=== PATIENT | female | born 2000 | race African-American/Black ===

== ENCOUNTER 2020-10-25 14:18 | Observation (INO) | payer BC, SELFPAY ==
[2020-10-25 14:46] VITALS: BP 130/71; PULSE 90
[2020-10-25 15:00] VITALS: BP 120/63; PULSE 83
[2020-10-25 15:03] VITALS: BMI 37.5
--- NOTE | 2020-10-25 15:21 | OBADM ---
This patient, Gala Kimbrough, admitted to the OB room OB Post 116 for observation for c/o urinary urgency. Patient/family oriented to hospital policies and general routines including ID bracelet, bed and alarms, visiting hours, pain management, procedures, bathroom and other care routines, personal items, smoking policy, room service/diet, and visiting hours. Patient/Family are encouraged to report perceived risks to care and to ask questions if they do not understand what they are told or what they should do.
[2020-10-25 15:30] VITALS: BP 126/63; PULSE 90
[2020-10-25 15:33] LABS: Add Urine Microscopic? YES; Appearance Urine Cloudy (Clear); Bacteria Urine 1+ /hpf; Bilirubin Urine Negative (Negative); Blood Urine Negative (Negative); Color Urine Yellow (Yellow); Glucose Urine UA Negative (Negative); Ketones Urine 1+ mg/dL (Negative); Leukocyte Esterase Ur Negative LEU/UL (Negative); Mucus Urine Rare /lpf; Nitrate Urine Negative (Negative); Protein Urine Negative (Negative); RBC Urine 0-2 /hpf (0-2); Specific Grav Ur 1.011 (1.001-1.035); Squamous Epithelial Cell Urine Many /hpf (Few); Transitional Epi Cells Urine Rare /hpf (None Seen); Urobilinogen Urine Negative mg/dL (<2.0)
[2020-10-25 16:00] VITALS: BP 117/63; PULSE 91; TEMP 36.3
--- NOTE | 2020-10-29 10:02 | PM.OBTRLD ---
OB - Triage/Final Diagnosis Visit Information Reason for evaluation: threatened labor Comments/Additional reasons for admission: I have assessed the risk for this patient, Gala Kimbrough, and determined that she would benefit from observation care. Evaluation Laboratory results: Laboratory Tests 10/25/20 14:56 Urine Color Yellow Urine Appearance Cloudy H Urine pH 8.0 Ur Specific [place] 1.011 Urine Protein Negative Urine Glucose (UA) Negative Urine Ketones 1+ H Ur Blood (Man) Negative Urine Nitrate Negative Urine Bilirubin Negative Urine Urobilinogen Negative Leukocyte Esterase Rfl Negative Urine RBC 0-2 Urine WBC 4-6 H Ur Squamous Epith Cells Many H Ur Transition Epith Cell Rare Urine Bacteria 1+ H Urine Mucus Rare
== END 2020-10-25 16:46 | disposition home or self-care (01) ==
PROVIDERS: Admitting Provider Obstetrics & Gynecology; PCP Obstetrics & Gynecology; Visit Provider Obstetrics & Gynecology
DX: O47.03 False labor before 37 completed weeks of gestation, third trimester (principal); Z3A.35 35 weeks gestation of pregnancy
CPT/HCPCS: 81001; 87086; G0378; G0379

== ENCOUNTER 2020-11-15 10:12 | Inpatient (IN) | payer BC, SELFPAY ==
[2020-11-15] VITALS (133 sets, daily range): BP systolic 79–150; BP diastolic 28–107; PULSE 25–155; TEMP 36.1–36.6; O2SAT 80–100; BMI 38.2
[2020-11-15] MEDS: LACTATED RINGERS 1,000 ML 125 ML IV CONT (12:21)
[2020-11-15] MEDS: OXYTOCIN 30 UNITS/NS 500 ML 30 UNITS/500 ML BAG IV CONT (12:22)
[2020-11-15 12:38] LABS: Basophils Percent Auto 0.4 % (0.2-1.2); Eosinophils Absolute Auto 0.1 K/mm3 (0-0.3); Eosinophils Percent Auto 0.5 % (0-4.4); Hematocrit 31.5 % (37.0-47.0); Hemoglobin 9.8 g/dL (12.0-15.0); Immature Granulocyte Absolute 0.09 K/mm3 (0.00-0.031); Immature Granulocyte Percent A 0.8 % (0-0.5); Lymphocytes Absolute Auto 1.74 K/mm3 (0.9-3.2); Lymphocytes Percent Auto 15.9 % (18.3-44.2); Mean Corpuscular HGB Conc 31.1 g/dl (32-36); Mean Corpuscular Hemoglobin 24.1 pg (26-34); Mean Corpuscular Volume 77.4 fl (80-100); Mean Platelet Volume 11.1 fl (7.4-10.4); Monocytes Absolute Auto 0.9 K/mm3 (0.1-0.6); Monocytes Percent Auto 7.9 % (2.6-8.5); Neutrophils Absolute Auto 8.2 K/mm3 (1.3-6.7); Neutrophils Percent Auto 74.5 % (45.5-73.1); Platelet Count Result 226 k/mm3 (150-375); Red Blood Count 4.07 M/mm3 (4.2-5.4); Red Cell Distribution Width 16.6 % (11.5-14.5)
--- NOTE | 2020-11-15 13:31 | WPDANESEPP ---
Anes - Eval Pre Procedure Procedure: labor epidural Date/Time: 11/15/20 13:31 Surgeon: Pati Preop Diagnosis: pain during labor Pre Op Diagnosis: Rupture of membranes Patient Data Age: 20 Gender: F Height: 5 ft 3 in Weight: 98 kg Last Vital Signs Temp 36.1 C L 11/15/20 11:45 Pulse 82 11/15/20 13:30 BP 133/63 11/15/20 13:30 Allergies Allergy/AdvReac Type Severity Reaction Status Date / Time No Known Allergies Allergy Verified 11/08/20 13:34 Home Medications Medication Instructions Recorded Confirmed Type PNV cmb#95-ferrous fumarate-FA 1 tablet PO DAILY 10/25/20 10/25/20 History [] Laboratory Tests 11/15/20 11/15/20 11/15/20 12:06 12:06 12:06 WBC 11.0 K/mm3 H K/mm3 (4.5-10.0) RBC 4.07 M/mm3 L M/mm3 (4.2-5.4) Hgb 9.8 g/dL L g/dL (12.0-15.0) Hct 31.5 % L % (37.0-47.0) MCV 77.4 fl L fl (80-100) MCH 24.1 pg L pg (26-34) MCHC 31.1 g/dl L g/dl (32-36) RDW 16.6 % H % (11.5-14.5) Plt Count 226 k/mm3 k/mm3 (150-375) MPV 11.1 fl H fl (7.4-10.4) Immature Gran % (Auto) 0.8 % H % (0-0.5) Neut % (Auto) 74.5 % H % (45.5-73.1) Lymph % (Auto) 15.9 % L % (18.3-44.2) [place] % (Auto) 7.9 % % (2.6-8.5) Eos % (Auto) 0.5 % % (0-4.4) Baso % (Auto) 0.4 % % (0.2-1.2) Lymph # (Auto) 1.74 K/mm3 K/mm3 (0.9-3.2) [place] # (Auto) 0.9 K/mm3 H K/mm3 (0.1-0.6) Eos # (Auto) 0.1 K/mm3 K/mm3 (0-0.3) Baso # (Auto) 0.0 K/mm3 K/mm3 (0.0-0.1) Abs Immat Gran (auto) 0.09 K/mm3 H K/mm3 (0.00-0.031) Absolute Neuts (auto) 8.2 K/mm3 H K/mm3 (1.3-6.7) Absolute Nucleated RBC 0.0 K/mm3 K/mm3 (0.0-0.012) Nucleated RBC % 0.0 % % (0.0-0.2) RPR Pending Blood Type O Positive Antibody Screen Negative : gestational age (REGULO 11/26/20) Patient hx anesthesia problems: none Family hx anesthesia problems: none PMFSH Family History Family History Other Unknown family medical history Social History Social History Smoking status: Never smoker Second hand tobacco smoke exposure: No Additional smoking assessment comments: pt admits to occasional marijuana use Substance use: never Spiritual care concerns: No Exam Day of Procedure 11/15/20 13:31 Patient weight: obese Heart: regular rate and rhythm Neurological: alert and oriented
--- NOTE | 2020-11-15 23:25 | WPDHPUPDATE1 ---
History and Physical Update Update Date/Time: 11/15/20 23:25 History and Physical has been reviewed, including an updated exam of the patient. There are NO changes in the patient's condition. Risks, benefits, and alternatives have been discussed and questions answered. Patient agrees to proceed with procedure.
--- NOTE | 2020-11-15 23:25 | WPDOBADMIT ---
Obstetrics - Admit Note Admission Note: record reviewed. No pertinent additions to the history and/or any subsequent changes in the physical findings that are not consistent with the expected course of the were found. Additions to the history and/or subsequent changes in the physical findings follow. None.
--- NOTE | 2020-11-15 23:47 | P.PCNOB_ITS ---
OB - Delivery Note Procedure Route of delivery: Episiotomy description: None Laceration Description: Superficial Delivery repair: chromic Specimen: Yes Quantitative Blood Loss (ml): 200 Anesthesia type: Epidural Disposition: floor Narrative: Patient prepped and draped in usual manner for this procedure. Maternal expulsive efforts readily delivered vertex with nuchal cord noted and readily reduced. Rest of baby was delivered without difficulty cord was clamped and cut and placenta delivered spontaneously. Cervix vagina vulva were inspected no significant lacerations or tears. Small laceration periurethral was using which was rendered hemostatic using [id number] of 2 0 chromic suture. Uterus was well contracted no significant bleeding at this point procedure was considered terminated with immediate postoperative condition of mother and baby both excellent. [place] Baby Weeks of gestation at delivery: 38 Infant gender: Male Weight (pounds): 0 Weight (ounces): 0 score one minute: 9 score five minutes: 9
[2020-11-16] VITALS (15 sets, daily range): BP systolic 108–148; BP diastolic 60–114; PULSE 81–107; RESP 16–18; TEMP 36.9–37.2; O2SAT 100
[2020-11-16] MEDS: OXYTOCIN 30 UNITS/NS 500 ML 30 UNITS/500 ML BAG 125 UNITS IV CONT (00:11)
--- NOTE | 2020-11-16 03:00 | OBPPTRN ---
Patient transferred to post room #278 via wheelchair - still down in nursery for first bath. Support person present. Oriented to unit, room, information board, rooming in, admission packet and security measures. Patient verbalizes understanding.
--- NOTE | 2020-11-16 08:00 | PC.NURSE ---
0800 Mother called out for assist with feeding. Mother reports has been sleepy and using a nipple shield for all feedings. Mother states this is 2nd child she did not attempt to breastfeed first. Reviewed infant feeding cues, frequencies, duration of feedings, feeding elimination flow sheet, and signs of adequate intake. Demonstrated stimulation techniques to wake for feeding. Assisted with infant to breast. Reviewed positioning/alignment in cross cradle, holding breast in ?U? hold and guided asymmetrical latch on. made eager attempts and was unable to latch correctly. Discussed nipple shield precautions and possible complications. Reviewed application and cleaning of shield. Patient able to return demonstration on proper application of shield. Discussed the need to initiate pumping if infant continues to nurse with the shield. Patient verbalizes understanding. With shield in place, was able to latch deeply. Infant made minimal efforts to suckle. Suggested mother stimulate while feeding to increase stimulate, increase intake and to assist with maintaining deep latch. Infant has a few bursts of weak suckling over 15 minutes of attempt. Discussed feeding options Mother would like to supplement . Advised mother should initiate pumping to stimulate milk supply. Advised next feeding should be at 1100 Instructed mother to call out for RN assistance if she is unable to latch for feeding or she has discomfort with nursing. Instructed feeding should be initiated three hours from start of last feeding or if feeding cues are noted before. Mother voiced understanding of information shared
--- NOTE | 2020-11-16 08:16 | PM.OBDSVD ---
DS: Admitting Diagnosis Admitting Diagnosis Admitting Diagnosis: OB - DS: Summary OB Procedures : None OB Procedures Intrapartum: Spontaneous Vag Delivery OB Procedures: : None Time Spent with Patient Time attestation: Total time spent providing and/or coordinating discharge services: DS: Data Data Completed and Pending Labs on day of discharge: Labs from last 24 hours 11/15/20 11/15/20 11/15/20 12:06 12:06 12:06 WBC 11.0 H RBC 4.07 L Hgb 9.8 L Hct 31.5 L MCV 77.4 L MCH 24.1 L MCHC 31.1 L RDW 16.6 H Plt Count 226 MPV 11.1 H Immature Gran % (Auto) 0.8 H Neut % (Auto) 74.5 H Lymph % (Auto) 15.9 L [place] % (Auto) 7.9 Eos % (Auto) 0.5 Baso % (Auto) 0.4 Lymph # (Auto) 1.74 [place] # (Auto) 0.9 H Eos # (Auto) 0.1 Baso # (Auto) 0.0 Abs Immat Gran (auto) 0.09 H Absolute Neuts (auto) 8.2 H Absolute Nucleated RBC 0.0 Nucleated RBC % 0.0 RPR Pending Blood Type O Positive Antibody Screen Negative Discharge Plan Discharge Discharging Clinician: Lenny Krueger Anticipated Discharge Date/Time: 11/17/20 08:00 Patient Disposition: Home, Self-Care Activity: as tolerated Diet: as tolerated Patient Instructions: Antibiotic Form Stand Alone Forms: General Discharge Information Follow-up/Referrals: Lenny Krueger MD [Physician] - 3 Weeks Discharge Medications: New ibuprofen 600 mg Tablet 600 mg PO Q6H PRN (Reason: Cramping) Qty: 30 RF: 0 Continued PNV cmb#95-ferrous fumarate-FA [] 28 mg iron- 800 mcg Tablet 1 tablet PO DAILY RF: 0 Date of admission: 11/15/20 10:12 Primary Care Provider: PHYSICIAN,PRODUCT MANAGEMENT MANAGER Admitting Provider: Lenny Krueger Attending physician on admission: Lenny Krueger Condition: Stable
[2020-11-16 08:56] LABS: Rapid Plasma Reagin Non-Reactive (NonReactive)
[2020-11-16 09:26] LABS: Hematocrit 30.4 % (37.0-47.0); Hemoglobin 9.4 g/dL (12.0-15.0)
--- NOTE | 2020-11-16 09:42 | WPDANLDPN2 ---
Anes-Prog Note L&D Date/Time: 11/16/20 09:42 Comfortable throughout: labor and delivery Neuraxial method: epidural Epidural/Spinal procedure site: clean & non-tender Neuro status: Neuro function grossly intact. Cardiovascular status: normal Respiratory status: normal Airway patency: baseline Mental status: baseline Post-Op hydration status: normal Vital Signs: Last Vital Signs Temp 37.1 C 11/16/20 08:05 Pulse 89 11/16/20 08:05 Resp 16 11/16/20 08:05 BP 117/71 11/16/20 08:05 Pulse Ox 100 11/16/20 08:05 Pain score (VAS): 07/03 I/O: Intake & Output 11/15/20 11/16/20 11/16/20 23:59 07:59 15:59 Intake Total 500 Output Total 200 Balance 300 Post-procedural complaints: none Patient feedback: Patient satisfied with anesthetic care.
--- NOTE | 2020-11-16 11:25 | PCCCNOTE ---
Addendum entered by Julissa Newman, [facility] [place]16[place] 12:43[place] 1245: Received email from [facility] stating the report was reviewed and assessed by a Civil Engineer In Training and was also approved by a monomer recovery supervisor. The information provided did not meet one of the criteria for an investigation. The information has been documented and will be kept on file. Should any more information be discovered or have any additional concerns, please contact [facility] again. KARIME Concepcion aware. Addendum entered by Julissa Newman, [facility] [place]/16/20 11:31: Pt. was not tested for any substances. Baby's meconium is pending. Original Note: Care Coordination: Received referral that states pt's baby boy's urine drug screen tested positive for THC. Met with pt. Pt. reports she will be living with the , 1 year old daughter, and significant other Kip in [place]. Pt. reports she has support from both Kip and her family. Pt. reports having all necessary baby supplies and only lacking some clothing. resources were provided for second hand resale shops. Pt. reports she has been in the process of setting up WIC and has successfully been set up with [employer]. Pt. reports using THC during for morning sickness and nausea. Pt. states a report was made with DCFS and DCFS came to her house. Gala reports that she is understanding that the report with her baby girl has been closed and not involved in any care plan with DCFS. Per Nursing, pt. will likely discharge tomorrow. DCFS report was filed online - #[id number]. KARIME Concepcion aware of this information.
[2020-11-16] MEDS: POLYSACCHARIDE IRON COMPLEX 150 MG CAPSULE PO ×2 (11:35→16:59)
[2020-11-16] MEDS: DOCUSATE SODIUM 100 MG CAPSULE PO ×2 (11:35→16:59)
[2020-11-16] MEDS: MULTIVIT/MIN/PREN/FOL AC/IRON TABLET 1 TAB PO (11:35)
[2020-11-16] MEDS: IBUPROFEN 600 MG TABLET PO (13:31)
--- NOTE | 2020-11-16 14:21 | PC.NURSE ---
Mother called out she is ready to begin pumping. Breast pump provided due to ineffective feeding/nipple shield use. Instructions given on breast pump care and usage, pumping schedule, nipple care, and collection and storage of breast milk. Encouraged [id number], breast massage and manual expression to stimulate supply. Assessed patient for correct flange size, placement and draw. Patient verbalizes and demonstrates understanding of instructions.
[2020-11-17] MEDS: IBUPROFEN 600 MG TABLET PO ×2 (04:15→11:18)
[2020-11-17 07:40] VITALS: BP 134/68; PULSE 83; RESP 16; TEMP 36.9; O2SAT 100
--- NOTE | 2020-11-17 08:10 | PC.NURSE ---
Consult with pt., mother reports she bottle fed during the night and did not pump. Mother states she wishes to continue with . Reviewed stimulation and milk supply. Mother would like to attempt to breast. Reviewed positioning/alignment in cross cradle, holding breast in U hold and guided asymmetrical latch on. Mother has large nipples , discussed infant may take in part of nipple and watching for correct latch. was wake and rooting, suggested to attempt without nipple shield. Several attempts before was able to latch correctly. Infant nursed eagerly, with steady draws and occasional swallowing for good 1-2 minutes bursts then pause and nipple would slip out. Infant eager to reattempt latch. Reviewed signs of a correct latch, effective nursing and suck swallow ratio. Infant was able to nurse without discomfort to mother. Nipple care reviewed. Discussed the difference of effective vs ineffective nursing. Advised infant is having a few bursts of effective nursing, not enough to discontinue supplementation and pumping. Feeding Plan: will be to continue to put to breast each feeding allowing to nurse or attempt without discomfort to mother. Suggested to return to nipple shield if she is having discomfort with nursing. Mother will then supplement 20 mls EBM/formula each feeding and pump for 10-15 minutes. Discussed signs when may be ready to increase supplementation, suggested to increase as desires. Reviewed once infant is latching consistently and effectively nursing he may want to decrease supplementation, suggested mother have feeding observed or pre and post weight feeding done by [facility], or follow up nurse before decreasing or discontinuing supplementation. Mother has contacted [facility] for pump, assisted mother with hospital kit as a hand pump. Mother is feeding as required and waking infant to feed if needed. Infant is currently meeting outcomes for weight, output, jaundice and feeding frequencies. Mother states she feels confident to continue current feeding plan at home. Reviewed transition to breast milk, signs of adequate intake, and engorgement/relief. Instructed to call ICP if intake/output less than required. Reviewed regular medications mother is taking. Information provided per Doreen. Reviewed community resources on the [employer] website and in the Mom/Baby guide. Information on outpatient services provided. Mother has no further questions at this time.
[2020-11-17] MEDS: MULTIVIT/MIN/PREN/FOL AC/IRON TABLET 1 TAB PO (09:39)
[2020-11-17] MEDS: DOCUSATE SODIUM 100 MG CAPSULE PO (09:39)
[2020-11-17] MEDS: POLYSACCHARIDE IRON COMPLEX 150 MG CAPSULE PO (09:40)
[2020-11-17] MEDS: LANOLIN (LANSINOH) 7.5 GM CREAM 1 APPLIC TOPICAL (09:41)
[2020-11-17] MEDS: TETANUS,DIPHTHERIA,AC PERTUSSIS ADULT (0.5 ML) BOOSTRIX IM (11:20)
--- NOTE | 2020-11-19 09:22 | PM.OBDSVD ---
DS: Admitting Diagnosis Admitting Diagnosis Admitting Diagnosis: OB - DS: Summary OB Procedures : None OB Procedures Intrapartum: Spontaneous Vag Delivery OB Procedures: : None Time Spent with Patient Time attestation: Total time spent providing and/or coordinating discharge services: DS: Data Data Completed and Pending Pending studies at discharge: Pending at discharge 11/17/20 07:34 Surgical [PTH] Routine Discharge Plan Discharge Discharging Clinician: Lenny Krueger Anticipated Discharge Date/Time: 11/17/20 08:00 Patient Disposition: Home, Self-Care Activity: as tolerated Diet: as tolerated Discharge Instructions: Education: Mom and Baby Guide Given to: Mother Follow-Up: Call your delivering provider's office for an appointment to be seen in: 3 weeks Mom and baby should come to the [facility] for the follow-up appointment. Appointment Date/Time: November 18, 2020 at 8:00 am What to expect at your follow-up visit: Blood Pressure Check Physical Assessment Call [phone] if you are unable to keep your appointment time. BREAST CARE: * Wear a snug supportive bra. * For engorgement discomfort: Breast Feeding: * Apply warm moist washcloths * Express milk as needed to relieve engorgement * Wear loose clothing Bottle Feeding: * May apply ice packs * For sore nipples: * Identify correct latch-on * Apply warm moist washcloths before and after nursing * Air dry nipples after nursing * May apply Lansinoh cream to nipples EPISIOTOMY/PERINEAL CARE: * Until bleeding stops, use your jass bottle after urinating * Change your pad frequently throughout the day * You may take sitz baths several times a day (fill your bathtub with warm water and soak for 20 minutes.) Do NOT bathe in the water * No tub baths until seen by your physician - You may shower ACTIVITY: * Rest as much as possible. * Do not exercise or lift anything heavier than your baby (such as laundry or other children.) * Avoid stairs or driving as much as possible. * Do not put anything into the vagina. No douching, tampons, or sexual activity until seen by physician. NOTIFY PHYSICIAN IF YOU HAVE ANY QUESTIONS OR IF ANY OF THE FOLLOWING SYMPTOMS OCCUR: * If your perineum becomes red, swollen, or more painful than what you have experienced in the hospital. * If your vaginal bleeding becomes foul smelling. * If your vaginal bleeding becomes more heavy than a period or if your bleeding changes from pink to bright red. However, you may pass an occasional walnut-sized clot once or twice for the first week . * If you experience a sharp, shooting pain in you calves. * If you discover a hard, reddened area on your breast or if you experience flu-like symptoms. *Temperature of 100.4 or higher DIET: * Eat regular, well-balanced meals. * Drink plenty of fluids daily. If , drink to thirst. Stand Alone Forms: General Discharge Information Follow-up/Referrals: Lenny Krueger MD [Physician] - 3 Weeks Discharge Medications: New ibuprofen 600 mg Tablet 600 mg PO Q6H PRN (Reason: Cramping) Qty: 30 RF: 0 Continued PNV cmb#95-ferrous fumarate-FA [] 28 mg iron- 800 mcg Tablet 1 tablet PO DAILY RF: 0 Date of admission: 11/15/20 10:12 Primary Care Provider: PHYSICIAN,CHANGE HOUSE ATTENDANT Admitting Provider: Lenny Krueger Attending physician on admission: Lenny Krueger Condition: Stable
== END 2020-11-17 15:06 | disposition home or self-care (01) | DRG 560 ==
LOC: ANHLDR 11:07 → ANHOB2 11-16 02:34
PROVIDERS: Admitting Provider Obstetrics & Gynecology; Visit Provider Obstetrics & Gynecology
DX: O16.4 Unspecified maternal hypertension, complicating childbirth (principal); Z37.0 Single live birth; Z3A.38 38 weeks gestation of pregnancy; O69.81X0 Labor and delivery complicated by cord around neck, without compression, not applicable or unspecified; O70.0 First degree perineal laceration during delivery; O71.82 Other specified trauma to perineum and vulva; O99.324 Drug use complicating childbirth; F12.90 Cannabis use, unspecified, uncomplicated
CPT/HCPCS: 36415; 84112; 85014; 85018; 85025; 86592; 86850; 86900; 86901; 88307; 90715; A9270; J2590; J2795; J7120

== ENCOUNTER 2021-09-22 08:37 | Outpatient (CLI) | payer BC, SELFPAY ==
[2021-09-22 09:07] VITALS: BP 99/57; PULSE 92
[2021-09-22 09:16] VITALS: BP 84/56; PULSE 74
[2021-09-22 09:29] VITALS: BP 134/76; PULSE 91
[2021-09-22 09:30] VITALS: BP 143/83; PULSE 94
[2021-09-22 09:45] VITALS: BP 135/79; PULSE 98
[2021-09-22 09:49] VITALS: BP 135/79; PULSE 89
--- NOTE | 2021-09-22 09:55 | PM.OBTRLD ---
OB - Triage/Final Diagnosis Visit Information Reason for evaluation: threatened labor Comments/Additional reasons for admission: I have assessed the risk for this patient, Gala Kimbrough, and determined that she would benefit from observation care. Evaluation Vital signs: Vital Signs - 24 hr 09/22/21 09:07 09/22/21 09:16 09/22/21 09:29 Pulse Rate 92 74 91 Blood Pressure 99/57 L 84/56 L 134/76 09/22/21 09:30 09/22/21 09:45 Pulse Rate 94 98 Blood Pressure 143/83 H 135/79
== END 2021-09-22 09:50 | disposition home or self-care (01) ==
LOC: ANHOBOP 09:42 → ANHLDR 09:42
PROVIDERS: Visit Provider Obstetrics & Gynecology
DX: O42.90 Premature rupture of membranes, unspecified as to length of time between rupture and onset of labor, unspecified weeks of gestation (principal); Z3A.00 Weeks of gestation of pregnancy not specified
CPT/HCPCS: 59025; 84112; 99199

== ENCOUNTER 2021-09-25 09:36 | Inpatient (IN) | payer BC, SELFPAY ==
[2021-09-25] VITALS (53 sets, daily range): BP systolic 87–148; BP diastolic 53–111; PULSE 67–128; RESP 13–18; TEMP 36.3–37.1; O2SAT 89–100; BMI 38.2
--- NOTE | 2021-09-25 10:28 | LDADM ---
This patient, Gala Kimbrough, was admitted to Labor/Delivery/Recovery 106 on 09/25/21 at 09:36. Plans for labor, pain management and were discussed with patient. Patient/family oriented to hospital policies and general routines including ID bracelet, bed and alarms, visiting hours, pain management, procedures, bathroom and other care routines, personal items, smoking policy, room service/diet and guest tray routines, security routines, and visiting hours. Patient/Family are encouraged to report perceived risks to care and to ask questions if they do not understand what they are told or what they should do. See [facility] for further documentation.
[2021-09-25] MEDS: LACTATED RINGERS 1,000 ML 999 ML IV CONT (10:48)
[2021-09-25 11:01] LABS: Basophils Absolute Auto 0.1 K/mm3 (0.0-0.1); Basophils Percent Auto 0.5 % (0.2-1.2); Eosinophils Absolute Auto 0.1 K/mm3 (0-0.3); Hematocrit 33.6 % (37.0-47.0); Hemoglobin 10.5 g/dL (12.0-15.0); Immature Granulocyte Absolute 0.07 K/mm3 (0.00-0.031); Immature Granulocyte Percent A 0.6 % (0-0.5); Lymphocytes Absolute Auto 1.81 K/mm3 (0.9-3.2); Lymphocytes Percent Auto 16.4 % (18.3-44.2); Mean Corpuscular HGB Conc 31.3 g/dl (32-36); Mean Corpuscular Hemoglobin 25.2 pg (26-34); Mean Corpuscular Volume 80.6 fl (80-100); Mean Platelet Volume 11.6 fl (7.4-10.4); Monocytes Absolute Auto 0.8 K/mm3 (0.1-0.6); Monocytes Percent Auto 7.1 % (2.6-8.5); Neutrophils Absolute Auto 8.2 K/mm3 (1.3-6.7); Neutrophils Percent Auto 74.4 % (45.5-73.1); Platelet Count Result 197 k/mm3 (150-375); Red Blood Count 4.17 M/mm3 (4.2-5.4); Red Cell Distribution Width 18.3 % (11.5-14.5); White Blood Count 11.1 K/mm3 (4.5-10.0)
--- NOTE | 2021-09-25 11:10 | WPDANESEPPF ---
Anes - Initial Pre Proc Eval Procedure: labor epidural Date/Time: 09/25/21 11:10 Surgeon: Lenny Krueger MD Pre Op Diagnosis: labor pain Pre Op Diagnosis: Contractions Patient Data Age: 21 Gender: F Height: 1.6 m Weight: 98 kg Allergies Allergy/AdvReac Type Severity Reaction Status Date / Time No Known Allergies Allergy Verified 09/18/21 11:09 Home Medications Medication Instructions Recorded Confirmed Type PNV cmb#95-ferrous fumarate-FA 1 tablet PO DAILY 10/25/20 09/25/21 History [] Laboratory Tests 09/25/21 09/25/21 09/25/21 10:38 10:38 10:38 WBC Pending RBC Pending Hgb Pending Hct Pending MCV Pending MCH Pending MCHC Pending RDW Pending Plt Count Pending MPV Pending Immature Gran % (Auto) Pending Neut % (Auto) Pending Lymph % (Auto) Pending [place] % (Auto) Pending Eos % (Auto) Pending Baso % (Auto) Pending Lymph # (Auto) Pending [place] # (Auto) Pending Eos # (Auto) Pending Baso # (Auto) Pending Abs Immat Gran (auto) Pending Absolute Neuts (auto) Pending Absolute Nucleated RBC Pending Nucleated RBC % Pending Urine Opiates Screen Urine Methadone Screen Ur Barbiturates Screen Ur Phencyclidine Scrn Ur Amphetamine Screen U Benzodiazepines Scrn Urine Cocaine Screen U Cannabinoids Screen RPR Pending HIV 1&2 Ab/P24 Ag 4thGn Pending 09/25/21 10:38 WBC RBC Hgb Hct MCV MCH MCHC RDW Plt Count MPV Immature Gran % (Auto) Neut % (Auto) Lymph % (Auto) [place] % (Auto) Eos % (Auto) Baso % (Auto) Lymph # (Auto) [place] # (Auto) Eos # (Auto) Baso # (Auto) Abs Immat Gran (auto) Absolute Neuts (auto) Absolute Nucleated RBC Nucleated RBC % Urine Opiates Screen Pending Urine Methadone Screen Pending Ur Barbiturates Screen Pending Ur Phencyclidine Scrn Pending Ur Amphetamine Screen Pending U Benzodiazepines Scrn Pending Urine Cocaine Screen Pending U Cannabinoids Screen Pending RPR HIV 1&2 Ab/P24 Ag 4thGn Patient hx anesthesia problems: none Family hx anesthesia problems: none Results Review: All pre-operative results and documents have been reviewed as part of the pre-operative evaluation. [facility] Past Medical History Medical History (Updated 09/13/21 @ 13:37 by Alycia Garcia MA) Hypertension affecting UTI (urinary tract infection) Surgical History Surgical History (Updated 08/01/21 @ 09:53 by Janette Nava) H/O wrist surgery History of laparoscopy 05/02/20 dx lscope to r/o torsion Family History Family History Other Unknown family medical history Social History Social History (Updated 06/30/21 @ 13:37 by Alycia Garcia MA) Smoking status: Smoker, status unknown Second hand tobacco smoke exposure: No Additional smoking assessment comments: pt admits to occasional marijuana use Alcohol intake: never Substance use: current Gender identity (if verbalized by the patient): Female Sexual Orientation (if Verbalized by the Patient): Straight or Heterosexual Spiritual care concerns: No Anes - Eval Final PreProcedure Day of Procedure 09/25/21 11:10 Patient weight: obese Heart: regular rate and rhythm Lungs: clear to auscultation and normal air movement Airway: Mallampati scale class II Neurological: alert and oriented Last oral intake: >/= 8 hours ASA classification: I
[2021-09-25] MEDS: LACTATED RINGERS 1,000 ML 125 ML IV CONT (11:11)
[2021-09-25 11:29] LABS: Amphetamine Screen Urine Negative (Negative); Barbiturate Screen Urine Negative (Negative); Benzodiazepines Screen Urine Negative (Negative); Cannabinoid Screen Urine Positive (Negative); Cocaine Screen Urine Negative (Negative); Methadone Screen Urine Negative (Negative); Opiate Screen Urine Negative (Negative); Phencyclidine Screen Urine Negative (Negative)
[2021-09-25 11:38] LABS: HIV 1/2 Ab P24 Ag Result Negative (Negative)
[2021-09-25] MEDS: OXYTOCIN 30 UNITS/NS 500 ML 30 UNITS/500 ML BAG 125 UNITS IV CONT ×2 (12:02→15:03)
--- NOTE | 2021-09-25 12:17 | WPDANESEFPP ---
Anes - Eval Final PreProcedure Day of Procedure 09/25/21 12:17 Patient weight: obese Heart: regular rate and rhythm Lungs: clear to auscultation Airway: Mallampati scale class II Neurological: alert and oriented Last oral intake: >/= 8 hours ASA classification: III Emergent: no Anesthetic plan: proceed Anesthesia type and monitoring: regional epidural (existing for labor but will use for C/S due to breech presentation) and standard monitoring Results Review: All pre-operative results and documents have been reviewed as part of the pre-operative evaluation. Informed Consent: The patient's anesthetic plan of existing epidural for Cesarian section due to breech with Dr. Krueger and its attendant risks and benefits were discussed with the patient. Questions were solicited and answers provided to the satisfaction of the patient/family/POA.
--- NOTE | 2021-09-25 12:18 | PM.IMHP ---
H&P: HPI History of Present Illness Date/Time: 09/25/21 12:18 Female 3 para 2001 presents in labor found to be 45cm on admission. After epidural and during exam for planned rupture of membranes was noted be breech which was confirmed by ultrasound. Discussed with patient and will proceed with delivery. Chief Complaint: Review of Systems Review of Systems: All systems reviewed & are unremarkable except as noted in HPI and below PMFSH Past Medical History Medical History Hypertension affecting UTI (urinary tract infection) Surgical History Surgical History H/O wrist surgery History of laparoscopy 05/02/20 dx lscope to r/o torsion Family History Family History Other Unknown family medical history Social History Social History Smoking status: Smoker, status unknown Second hand tobacco smoke exposure: No Additional smoking assessment comments: pt admits to occasional marijuana use Alcohol intake: never Substance use: current Gender identity (if verbalized by the patient): Female Sexual Orientation (if Verbalized by the Patient): Straight or Heterosexual Spiritual care concerns: No Meds Home Medications and Allergies Home Medications Medication Instructions Recorded Confirmed Type PNV cmb#95-ferrous fumarate-FA 1 tablet PO DAILY 10/25/20 09/25/21 History [] Allergies Allergy/AdvReac Type Severity Reaction Status Date / Time No Known Allergies Allergy Verified 09/18/21 11:09 Vital Signs Vital Signs - 24 hr 09/25/21 11:00 09/25/21 11:14 09/25/21 11:16 Temperature 98.8 F Pulse Rate 83 93 Blood Pressure 128/67 148/79 H Pulse Oximetry 100 09/25/21 11:20 09/25/21 11:30 09/25/21 11:33 Temperature Pulse Rate 106 H 83 Blood Pressure 130/73 104/82 Pulse Oximetry 100 100 09/25/21 11:35 09/25/21 11:37 09/25/21 11:40 Temperature Pulse Rate 75 Blood Pressure 132/62 Pulse Oximetry 100 100 09/25/21 11:41 09/25/21 11:45 09/25/21 11:46 Temperature Pulse Rate 73 76 Blood Pressure 142/88 H 135/80 Pulse Oximetry 99 09/25/21 11:50 09/25/21 11:51 09/25/21 11:55 Temperature Pulse Rate 76 Blood Pressure 131/78 Pulse Oximetry 99 98 09/25/21 11:56 09/25/21 12:00 09/25/21 12:01 Temperature Pulse Rate 83 86 Blood Pressure 144/82 H 137/77 Pulse Oximetry 100 09/25/21 12:05 09/25/21 12:08 09/25/21 12:09 Temperature Pulse Rate Blood Pressure Pulse Oximetry 99 100 99 09/25/21 12:11 09/25/21 12:14 09/25/21 12:16 Temperature Pulse Rate 81 87 Blood Pressure 144/86 H 138/74 Pulse Oximetry 100 Exam Const: General: cooperative, healthy appearing and comfortable Resp: Effort & Inspection: normal respiratory effort Auscultation: clear to auscultation bilaterally Cardio: Rate: regular rate Rhythm: regular rhythm GI: Auscultation: normal bowel sounds : External Female Exam: normal external appearance Speculum Exam - Vagina: normal appearance of the vagina Bimanual exam- vagina & uterus: enlarged ( 39cm. heart tones 140. Breech by ultrasound.) Manual OB Exam: dilated 7 cm, effaced 75% and station -2 H&P: Results Labs Labs: Short CBC 09/25/21 Range/Units 10:38 WBC 11.1 H (4.5-10.0) K/mm3 Hgb 10.5 L (12.0-15.0) g/dL Hct 33.6 L (37.0-47.0) % Plt Count 197 (150-375) k/mm3 Assessment and Plan Assessment and plan (1) 39 weeks gestation of : Code(s): Z3A.39 - 39 weeks gestation of Status: Acute (2) Breech presentation: Code(s): O32.1XX0 - Maternal care for breech presentation, not applicable or unspecified Status: Acute Assessment a
--- NOTE | 2021-09-25 12:21 | WPDHPUPDATE1 ---
History and Physical Update Update Date/Time: 09/25/21 12:21 History and Physical has been reviewed, including an updated exam of the patient. There are NO changes in the patient's condition. Risks, benefits, and alternatives have been discussed and questions answered. Patient agrees to proceed with procedure.
--- NOTE | 2021-09-25 13:25 | PM.OBPRVD ---
OB - Delivery Note Procedure Procedure: Procedures Operation Date: 09/25/21 12:15 <No data on this case meets the specified criteria> Events: Breech Presentation Induction method: None Delivery monitor: External FHT and External Uterine Route of delivery: Prior to decision for section, [facility] labor guidelines were considered and discussed with the patient and staff. Decision made to proceed with the section.: No Specimen: No Quantitative Blood Loss (ml): 525 Anesthesia type: Epidural Disposition: Floor Narrative: Patient was prepped and draped in the usual manner for this procedure. Pfannenstiel incision was made carried down to the fascia which was extended bilaterally the length of the skin incision. Superiorly and inferiorly dissected away from the rectus muscles and the peritoneum was readily entered. Bladder flap was developed without difficulty nares was scored with clear fluid noted. Lower segment was incised without difficulty. Breech was delivered readily section naso-oropharynx cord was clamped and cut the baby was passed off the operative field. Placenta removed manually with the uterus then being a removed through the abdominal incision. All membranes and clots removed from the uterus and this incision was closed using 0 Monocryl running interlocking manner with good approximation hemostasis noted. Uterus of was then returned to the abdomen gutters were cleared of serous sanguinous fluid and clots and all subfascial tissue was noted be hemostatic. Fascia was approximated using 0 Vicryl from left angle midline and the right angle to the midline. Subcutaneous tissue was irrigated and was hemostatic and approximated using 0 plain suture. Dana were then used to approximate the skin edges. Immediate postoperative condition of mother and baby were both excellent. Baby Weeks of gestation at delivery: 39 Infant gender: Female Weight (pounds): 5 Weight (ounces): 12 presentation: breech Placenta delivery description: Manual Removal Cord Vessel Description: 3 Vessels score one minute: 8 score five minutes: 9 AMG Delivery Billing Delivery Delivery: Delivery Charge
[2021-09-25] MEDS: KETOROLAC 30 MG/ML VIAL (*BKC) 15 MG IV PUSH (14:26)
--- NOTE | 2021-09-25 16:06 | PC.NURSE ---
Patient transferred to post room #287 via 1606. Support person present. Oriented to unit, room, information board, rooming in, admission packet and security measures. Patient verbalizes understanding.
[2021-09-25] MEDS: KETOROLAC 30 MG/ML VIAL (*BKC) IV PUSH (17:51)
[2021-09-25] MEDS: LORATADINE 5 MG TABLET PO (19:29)
[2021-09-26] MEDS: IBUPROFEN 600 MG TABLET PO ×3 (01:32→16:28)
[2021-09-26] MEDS: HYDROcodone/acetaminophen (*CRX) 5-325 MG TABLET 1 TAB PO ×4 (01:32→16:28)
[2021-09-26 05:20] VITALS: BP 104/60; PULSE 74; RESP 16; TEMP 36.6
[2021-09-26 05:38] LABS: Basophils Percent Auto 0.2 % (0.2-1.2); Eosinophils Percent Auto 0.1 % (0-4.4); Hematocrit 28.2 % (37.0-47.0); Hemoglobin 9.1 g/dL (12.0-15.0); Immature Granulocyte Absolute 0.04 K/mm3 (0.00-0.031); Immature Granulocyte Percent A 0.3 % (0-0.5); Lymphocytes Absolute Auto 1.55 K/mm3 (0.9-3.2); Lymphocytes Percent Auto 12.4 % (18.3-44.2); Mean Corpuscular HGB Conc 32.3 g/dl (32-36); Mean Corpuscular Hemoglobin 25.3 pg (26-34); Mean Corpuscular Volume 78.6 fl (80-100); Monocytes Percent Auto 8.3 % (2.6-8.5); Neutrophils Absolute Auto 9.8 K/mm3 (1.3-6.7); Neutrophils Percent Auto 78.7 % (45.5-73.1); Platelet Count Result 171 k/mm3 (150-375); Red Blood Count 3.59 M/mm3 (4.2-5.4); White Blood Count 12.5 K/mm3 (4.5-10.0)
[2021-09-26 08:00] VITALS: BP 100/66; PULSE 92; RESP 20; TEMP 36.2
[2021-09-26] MEDS: SIMETHICONE 80 MG TAB.CHEW PO ×3 (08:08→16:28)
[2021-09-26] MEDS: DOCUSATE SODIUM 100 MG CAPSULE PO ×2 (08:10→16:27)
[2021-09-26] MEDS: POLYSACCHARIDE IRON COMPLEX 150 MG CAPSULE PO ×2 (08:10→16:27)
--- NOTE | 2021-09-26 09:27 | WPDANLDPN2 ---
Anes-Prog Note L&D Date/Time: 09/26/21 09:27 Comfortable throughout: labor and section Neuraxial method: epidural Epidural/Spinal procedure site: clean & non-tender Neuro status: Neuro function grossly intact. Cardiovascular status: normal Respiratory status: normal Airway patency: baseline Mental status: baseline Post-Op hydration status: normal Vital Signs: Last Vital Signs Temp 36.6 C 09/26/21 05:20 Pulse 74 09/26/21 05:20 Resp 16 09/26/21 05:20 BP 104/60 09/26/21 05:20 Pulse Ox 100 09/25/21 16:15 Pain score (VAS): 3/10 I/O: Intake & Output 09/25/21 09/26/21 09/26/21 23:59 07:59 15:59 Intake Total 300 1050 Output Total 2000 Balance 300 -950 Post-procedural complaints: pruritis mild, no treatment Patient feedback: Patient satisfied with anesthetic care.
--- NOTE | 2021-09-26 09:28 | P.PNOB_ITS ---
OB - PN: Subj Subjective Date/time seen: 09/26/21 09:28 21-year-old female 1 day status post primary section for breech presentation. She has tolerated diet on oral medications and has been ambulating. No significant pain or discomfort at this point. OB - PN: Obj Data Labs CBC & Chem 7: 09/26/21 05:18 Labs: Laboratory Results - last 24 hr 09/25/21 09/25/21 09/25/21 10:38 10:38 10:38 WBC 11.1 H RBC 4.17 L Hgb 10.5 L Hct 33.6 L MCV 80.6 MCH 25.2 L MCHC 31.3 L RDW 18.3 H Plt Count 197 MPV 11.6 H Immature Gran % (Auto) 0.6 H Neut % (Auto) 74.4 H Lymph % (Auto) 16.[address] [place] % (Auto) 7.1 Eos % (Auto) 1.0 Baso % (Auto) 0.5 Lymph # (Auto) 1.81 [place] # (Auto) 0.8 H Eos # (Auto) 0.1 Baso # (Auto) 0.1 Abs Immat Gran (auto) 0.07 H Absolute Neuts (auto) 8.2 H Absolute Nucleated RBC 0.0 Nucleated RBC % 0.0 Urine Opiates Screen Urine Methadone Screen Ur Barbiturates Screen Ur Phencyclidine Scrn Ur Amphetamine Screen U Benzodiazepines Scrn Urine Cocaine Screen U Cannabinoids Screen HIV 1&2 Ab/P24 Ag 4thGn Negative Blood Type O Positive Antibody Screen Negative 09/25/21 09/26/21 10:38 05:18 WBC 12.5 H RBC 3.59 L Hgb 9.1 L Hct 28.2 L MCV 78.6 L MCH 25.3 L MCHC 32.3 RDW 18.0 H Plt Count 171 MPV 11.0 H Immature Gran % (Auto) 0.3 Neut % (Auto) 78.7 H Lymph % (Auto) 12.[address] [place] % (Auto) 8.3 Eos % (Auto) 0.1 Baso % (Auto) 0.2 Lymph # (Auto) 1.55 [facility] # (Auto) 1.0 H Eos # (Auto) 0.0 Baso # (Auto) 0.0 Abs Immat Gran (auto) 0.04 H Absolute Neuts (auto) 9.8 H Absolute Nucleated RBC 0.0 Nucleated RBC % 0.0 Urine Opiates Screen Negative Urine Methadone Screen Negative Ur Barbiturates Screen Negative Ur Phencyclidine Scrn Negative Ur Amphetamine Screen Negative U Benzodiazepines Scrn Negative Urine Cocaine Screen Negative U Cannabinoids Screen Positive A HIV 1&2 Ab/P24 Ag 4thGn Blood Type Antibody Screen OB - PN A/P Plan day: 1 Plan: routine care Time Spent With Patient Time: Total time spent is greater than 50% in coordination of care (as documented) at patient's floor/unit and/or counseling patient: Exam Narrative: Abdomen soft with good bowel sounds. Incision bandage dry.
[2021-09-26 11:35] VITALS: BP 134/62; PULSE 83; RESP 16; TEMP 36.4; O2SAT 100
[2021-09-26 11:53] LABS: Rapid Plasma Reagin Non-Reactive (NonReactive)
[2021-09-26 20:00] VITALS: BP 114/59; PULSE 96; RESP 18; TEMP 36.6
[2021-09-27] MEDS: HYDROcodone/acetaminophen (*CRX) 5-325 MG TABLET 1 TAB PO ×3 (01:46→12:43)
[2021-09-27] MEDS: IBUPROFEN 600 MG TABLET PO ×2 (01:46→08:29)
[2021-09-27 07:35] VITALS: BP 122/64; PULSE 81; RESP 18; TEMP 36.1; O2SAT 100
[2021-09-27] MEDS: POLYSACCHARIDE IRON COMPLEX 150 MG CAPSULE PO (08:28)
[2021-09-27] MEDS: SIMETHICONE 80 MG TAB.CHEW PO (08:28)
[2021-09-27] MEDS: DOCUSATE SODIUM 100 MG CAPSULE PO (08:29)
--- NOTE | 2021-09-27 08:31 | P.DS_ITS ---
DS: Admitting Diagnosis Discharge Date 09/27/2021 Admitting Diagnosis OB - DS: Summary OB Procedures : None OB Procedures Intrapartum: OB Procedures: : None Peripartum Data Procedures: Procedures Operation Date: 09/25/21 12:15 Actual Procedure Side Surgeon p Section Lenny Krueger MD Time Spent with Patient Time attestation: Total time spent providing and/or coordinating discharge services: DS: Data Data Completed and Pending Labs on day of discharge: Labs from last 24 hours 09/25/21 10:38 RPR Non-reactive Discharge Plan Discharge Discharging Clinician: Lenny Krueger Patient Disposition: Home, Self-Care Activity: as tolerated Diet: as tolerated Wound Care Instructions: incision open to air Discharge Instructions: return to office Saturday for staple removal. Patient Instructions: Antibiotic Form Stand Alone Forms: General Discharge Information Follow-up/Referrals: Lenny Krueger MD [Physician] - 3 Weeks Discharge Medications: New hydrocodone-acetaminophen 5-325 mg Tablet 1 tablet PO Q6H PRN (Reason: Moderate Pain (4-6)) Qty: 30 RF: 0 ibuprofen 600 mg Tablet 600 mg PO Q6H PRN (Reason: Cramping) Qty: 30 RF: 0 Continued PNV cmb#95-ferrous fumarate-FA [] 28 mg iron- 800 mcg Tablet 1 tablet PO DAILY RF: 0 Date of admission: 09/25/21 09:36 Primary Care Provider: PHYSICIAN,B2B ACCOUNT EXECUTIVE Admitting Provider: Lenny Krueger Attending physician on admission: Lenny Krueger Condition: Stable
--- NOTE | 2021-09-27 08:49 | PC.NURSE ---
On 09/27/21, the student, Madelyn Gutierrez, provided care and completed [facility] documentation on this patient. I have reviewed the student's documentation and agree with the findings.
--- NOTE | 2021-09-27 09:00 | PC.NURSE ---
Patient was given the opportunity to view the discharge video Mother & Baby Care, The First Two Weeks and to ask questions. Patient declined viewing the video and has been given the mother/baby guide for home reference.
--- NOTE | 2021-09-27 10:47 | PC.NURSE ---
Self care and infant care discharge instructions given including follow up visit date and time. Mother verbalized understanding. No questions or concerns voiced.
[2021-09-28 09:50] VITALS: BP 137/75; PULSE 90; RESP 20; TEMP 37.1; O2SAT 100
== END 2021-09-27 12:50 | disposition home or self-care (01) | DRG 540 ==
LOC: ANHLDR 10:27 → ANHOB2 16:10
PROVIDERS: Admitting Provider Obstetrics & Gynecology; Visit Provider Obstetrics & Gynecology
PROC: 10D00Z1 Extraction of Products of Conception, Low, Open Approach (ICD-10-PCS; CPT 59514; principal; 2021-09-25 12:15)
DX: O32.1XX0 Maternal care for breech presentation, not applicable or unspecified (principal); Z37.0 Single live birth; Z3A.38 38 weeks gestation of pregnancy; O16.4 Unspecified maternal hypertension, complicating childbirth; O99.02 Anemia complicating childbirth; D50.9 Iron deficiency anemia, unspecified
CPT/HCPCS: 36415; 80307; 85025; 86592; 86703; 86850; 86900; 86901; A9270; G0432; J0131; J1100; J1885; J2274; J2405; J2590; J2795; J7120

== ENCOUNTER 2022-09-22 16:41 | Emergency (ER) | payer BC, SELFPAY ==
[2022-09-22] VITALS (23 sets, daily range): BP systolic 122–157; BP diastolic 65–103; PULSE 65–94; RESP 14–25; TEMP 36.4; O2SAT 100
--- NOTE | ~2022-09-22 | XR_ITS ---
EXAMINATION: XR chest 2V Exam Date/Time: 09/22/2022 17:38 CDT HISTORY: shortness of breath and CP x today Comparison: None available. RESULT: Lines, tubes, and devices: None. Lungs and pleura: Clear. Cardiomediastinal silhouette: Normal. Other: No acute osseous or upper abdominal finding. IMPRESSION: No acute cardiopulmonary process. Reviewed, dictated and finalized at location K.
--- NOTE | 2022-09-22 16:48 | ECG_ITS ---
Measurements Intervals [place] Rate: 70 P: 44 [place]: 182 QRS: 52 QRSD: 80 T: 43 QT: 366 QTc: 397 Interpretive Statements SINUS RHYTHM NO PREVIOUS ECG AVAILABLE FOR COMPARISON Electronically Signed On 09-23-2022 12:51:38 CDT by Brien Estrella M.D.
[2022-09-22 17:04] LABS: Basophils Percent Auto 0.2 % (0.2-1.2); Hematocrit 38.7 % (37.0-47.0); Hemoglobin 12.5 g/dL (12.0-15.0); Immature Granulocyte Absolute 0.05 K/mm3 (0.00-0.031); Immature Granulocyte Percent A 0.3 % (0-0.5); Lymphocytes Absolute Auto 1.72 K/mm3 (0.9-3.2); Lymphocytes Percent Auto 11.7 % (18.3-44.2); Mean Corpuscular HGB Conc 32.3 g/dl (32-36); Mean Corpuscular Hemoglobin 26.2 pg (26-34); Mean Platelet Volume 10.6 fl (7.4-10.4); Monocytes Absolute Auto 0.7 K/mm3 (0.1-0.6); Neutrophils Absolute Auto 12.2 K/mm3 (1.3-6.7); Neutrophils Percent Auto 82.8 % (45.5-73.1); Platelet Count Result 252 k/mm3 (150-375); Red Blood Count 4.78 M/mm3 (4.2-5.4); Red Cell Distribution Width 15.7 % (11.5-14.5); White Blood Count 14.8 K/mm3 (4.5-10.0)
[2022-09-22 17:15] LABS: Alanine Aminotransferase 13 U/L (6-35); Albumin Level 4.5 g/dL (3.5-5.1); Alkaline Phosphatase 78 U/L (38-126); Anion Gap 10 mmol/L (8-16); Aspartate Amino Transferase 18 U/L (14-36); Bilirubin,Total 0.4 mg/dL (0.2-1.3); Blood Urea Nitrogen 4 mg/dL (7-17); Calcium 8.9 mg/dL (8.4-10.2); Carbon Dioxide 22 mmol/L (22-30); Chloride 103 mmol/L (98-107); Estimated CRCL calculation 151 ml/min; Estimated Glomerular Filt Rate > 60; Glucose 97 mg/dL (65-110); Lipase 49 U/L (23-300); Potassium 3.7 mmol/L (3.4-5.0); Sodium 135 mmol/L (137-145)
[2022-09-22] MEDS: ONDANSETRON INJ 4 MG/2 ML VIAL IV PUSH (19:59)
[2022-09-22 20:43] LABS: Appearance Urine Cloudy (Clear); Bacteria Urine 1+ /hpf; Bilirubin Urine Negative (Negative); Blood Urine Negative (Negative); Color Urine Yellow (Yellow); Glucose Urine UA Negative (Negative); Ketones Urine 4+ mg/dL (Negative); Leukocyte Esterase Ur 1+ LEU/UL (Negative); Nitrate Urine Negative (Negative); Non Pathogenic Casts 0-2; Protein Urine 1+ mg/dL (Negative); RBC Urine 0-2 /hpf (0-2); Specific Grav Ur 1.027 (1.001-1.035); Squamous Epithelial Cell Urine Few /hpf (Few); pH Urine 7.5 (5.0-9.0)
[2022-09-22] MEDS: SODIUM CHLORIDE 0.9% IV 1,000 ML 999 ML IV CONT (20:46)
[2022-09-22 21:16] LABS: Add Urine Microscopic? YES
--- NOTE | 2022-09-22 21:17 | ED.GENADULT ---
HPI - General Adult General Chief complaint: Nausea/Vomiting/Diarrhea Stated complaint: CP/SOB/NV Time Seen by Provider: 09/22/22 19:30 Source: patient Mode of arrival: ambulatory Limitations: no limitations History of Present Illness HPI narrative: 22-year-old 4 para 2 about 7 weeks of gestation here with complaints of nausea, vomiting, midsternal and epigastric pain which started this morning. Patient states that she is unable to keep any fluids down. She states occasionally she gets short of breath. She presently denies any vaginal bleeding or lower abdominal pain. Onset (ago): day(s) (1) Radiation: non-radiation Severity: moderate Quality: aching Pain Consistency: intermittent Relieving factors: none Exacerbating factors: none Associated symptoms: denies other symptoms Related Data Home Medications Medication Instructions Recorded Confirmed vit no.95-ferrous 1 tablet PO DAILY 10/25/20 09/25/21 fumarate 28 mg-folic acid 800 mcg tablet () Allergies Allergy/AdvReac Type Severity Reaction Status Date / Time No Known Allergies Allergy Verified 09/18/21 11:09 Review of Systems Review of Systems: All systems reviewed & are unremarkable except as noted in HPI and below Constitutional: Constitutional: Reports no additional constitutional complaints Eyes: Eyes: Reports no additional eye complaints ENT: Reports system reviewed and no additional complaints, except as documented Cardiovascular: Cardiovascular: Reports as per HPI Respiratory: Respiratory: Reports no additional respiratory complaints Gastrointestinal: Gastrointestinal: Reports as per HPI Genitourinary: Genitourinary: Reports no additional female genitourinary complaints Musculoskeletal: Musculoskeletal: Reports no additional musculoskeletal complaints Integumentary/Breasts: Skin/Breast: Reports system reviewed and no additional complaints, except as docu PMFSH Past Medical History Medical History Hypertension affecting UTI (urinary tract infection) Surgical History Surgical History Delivery by section (09/25/21) primary c/s Breech H/O wrist surgery History of laparoscopy 05/02/20 dx lscope to r/o torsion Family History Family History Other Unknown family medical history Social History Social History Smoking status: Smoker, status unknown Second hand tobacco smoke exposure: No Additional smoking assessment comments: pt admits to occasional marijuana use Alcohol intake: never Substance use: current Gender identity (if verbalized by the patient): Female Sexual Orientation (if Verbalized by the Patient): Straight or Heterosexual Spiritual care concerns: No Exam Narrative: GENERAL: Well-appearing, well-nourished, and in no acute distress. HEAD: Normocephalic, atraumatic. EYES: PERRLA and EOMI.. NECK: Supple. CHEST: Clear to auscultation. No respiratory distress. HEART: Regular rate and rhythm. No murmur heard. Normal peripheral pulses. ABDOMEN: Soft, nontender, nondistended. EXTREMITIES: Normal range of motion. No edema. SKIN: Warm, dry, no rash. NEURO: No focal deficits. Alert and oriented x3. PSYCH: Normal mood and affect. Course Course Emergency Course: 22-year-old presently 7 weeks of gestation now having nausea, vomiting feels dehydrated we will start IV fluid she was complaining of chest pain which is intermittent her EKG is unremarkable . IV fluids and Zofran was given. Vital Signs Vital signs: Vital Signs Temperature 36.4 C 09/22/22 16:44 Pulse Rate 73 09/22/22 16:44 Respiratory Rate 14 09/22/22 16:44 Blood Pressure 123/72 09/22/22 16:44 Pulse Oximetry 100 09/22/22 16:44 Oxygen Delivery Room Air 09/22/22 16:44
== END 2022-09-22 22:50 | disposition home or self-care (01) ==
PROVIDERS: Emergency Provider Family Medicine
DX: O21.0 Mild hyperemesis gravidarum (principal); O26.891 Other specified pregnancy related conditions, first trimester; R07.89 Other chest pain; Z3A.01 Less than 8 weeks gestation of pregnancy
CPT/HCPCS: 36415; 71046; 80053; 81001; 83690; 85025; 87086; 87088; 93005; 96361; 96374; 99284; J2405; J7030

== ENCOUNTER 2022-11-25 10:42 | Observation (INO) | payer BC, SELFPAY ==
--- NOTE | 2022-11-25 10:50 | OBADM ---
This patient, Gala Kimbrough, admitted to the OB room OB Post 115 for observation. Patient/family oriented to hospital policies and general routines including ID bracelet, bed and alarms, visiting hours, pain management, procedures, bathroom and other care routines, personal items, smoking policy, room service/diet, and visiting hours. Patient/Family are encouraged to report perceived risks to care and to ask questions if they do not understand what they are told or what they should do.
[2022-11-25 11:01] VITALS: BP 139/85; PULSE 98
--- NOTE | 2022-11-25 11:10 | PC.NURSE ---
Patient tearful and uncomfortable, patient denies the urge the push when asked.
--- NOTE | 2022-11-25 11:12 | PC.NURSE ---
Doppler of heart tones 165, midline. Patient feeling cramping every 2-3 minutes. Contractions difficult to monitor due to gestational age. Dr Shipley was notified at 1107 of adm c/o of contractions and some spotting that was noted in the bathroom while here, and gestational age. Orders to transfer patient back to ER for evaluation. ER change nurse was notified of MD order for ER evaluation at 1109, transfer back to ER accepted. Patient taken back to ER via wheel chair at 1112, plan of care explained to patient.
--- NOTE | 2022-12-21 09:43 | PM.OBTRLD ---
OB - Triage/Final Diagnosis Visit Information Comments/Additional reasons for admission: I have assessed the risk for this patient, Gala Kimbrough, and determined that she would benefit from observation care. Final Diagnosis (1) Inevitable complete miscarriage without complication: Code(s): O03.9 - Complete or unspecified spontaneous without complication Status: Acute
== END 2022-11-25 11:12 | disposition other institution (70) ==
PROVIDERS: Admitting Provider Obstetrics & Gynecology; Visit Provider Obstetrics & Gynecology
DX: O03.9 Complete or unspecified spontaneous abortion without complication (principal); Z3A.16 16 weeks gestation of pregnancy
CPT/HCPCS: 99199

== ENCOUNTER 2022-11-25 11:19 | Inpatient (IN) | payer BC, SELFPAY ==
[2022-11-25] VITALS (19 sets, daily range): BP systolic 101–165; BP diastolic 54–145; PULSE 83–119; RESP 20–22; TEMP 36–36.9; O2SAT 99–100; BMI 36.7
--- NOTE | ~2022-11-25 | US_ITS ---
US OB limited DATE: 11/25/2022 12:01 INDICATION: Contractions TECHNIQUE: Limited real-time examination COMPARISON: None FINDINGS: The fetus is in vertex presentation, head artery having passed through the dilated ce rvix into the vaginal cavity IMPRESSION: in process Reviewed, dictated and finalized at [facility] Reviewed, dictated and finalized at [facility]. IMPRESSION: in process
[2022-11-25 11:38] LABS: Basophils Absolute Auto 0.1 K/mm3 (0.0-0.1); Basophils Percent Auto 0.3 % (0.2-1.2); Eosinophils Percent Auto 0.3 % (0-4.4); Hematocrit 35.4 % (37.0-47.0); Hemoglobin 11.3 g/dL (12.0-15.0); Immature Granulocyte Absolute 0.08 K/mm3 (0.00-0.031); Immature Granulocyte Percent A 0.5 % (0-0.5); Lymphocytes Absolute Auto 1.88 K/mm3 (0.9-3.2); Mean Corpuscular HGB Conc 31.9 g/dl (32-36); Mean Corpuscular Hemoglobin 25.9 pg (26-34); Mean Corpuscular Volume 81.2 fl (80-100); Mean Platelet Volume 11.1 fl (7.4-10.4); Monocytes Absolute Auto 0.9 K/mm3 (0.1-0.6); Monocytes Percent Auto 5.6 % (2.6-8.5); Neutrophils Absolute Auto 12.8 K/mm3 (1.3-6.7); Neutrophils Percent Auto 81.3 % (45.5-73.1); Platelet Count Result 201 k/mm3 (150-375); Red Blood Count 4.36 M/mm3 (4.2-5.4); Red Cell Distribution Width 15.1 % (11.5-14.5); White Blood Count 15.7 K/mm3 (4.5-10.0)
[2022-11-25 11:49] LABS: Appearance Urine Turbid (Clear); Bacteria Urine None Seen /hpf; Bilirubin Urine Negative (Negative); Blood Urine Negative (Negative); Color Urine Yellow (Yellow); Glucose Urine UA Negative (Negative); Ketones Urine Negative (Negative); Leukocyte Esterase Ur Trace LEU/UL (Negative); Nitrate Urine Negative (Negative); Non Pathogenic Casts 0-2; Protein Urine Trace mg/dL (Negative); RBC Urine 0-2 /hpf (0-2); Specific Grav Ur 1.019 (1.001-1.035); Squamous Epithelial Cell Urine Moderate /hpf (Few); WBC Urine 0-5 /hpf; pH Urine 8.5 (5.0-9.0)
[2022-11-25 11:51] LABS: Add Urine Microscopic? YES
--- NOTE | 2022-11-25 12:05 | PC.NURSE ---
Patient transferred back to OB from ER at 1200, informed by ER that delivery is eminent per US. Patient transferred from stretcher to bed, patient having strong urge to push and states that she feels something coming out. Membranes and placenta noted to be protruding from vaginal. Patient encouraged to give a small push. Delivery of fetus in an intact sac and placenta was noted at 1202. Small to moderate vaginal bleeding was noted and fundus is firm. Patient tearful and emotional support given. movement was noted within the sac. Permission to open sac was obtained from OB MD and patient given time to hold fetus.
--- NOTE | 2022-11-25 12:05 | ED.GENADULT ---
HPI - General Adult General Chief complaint: OB/Uterine Contractions Stated complaint: contractions 16w 5 d Time Seen by Provider: 11/25/22 11:55 History of Present Illness HPI narrative: 22-year-old female that is approximately 16 weeks 5 days that is presented the ED for evaluation of contractions since 830. Related Data Home Medications Medication Instructions Recorded Confirmed vit no.95-ferrous 1 tablet PO DAILY 10/25/20 09/25/21 fumarate 28 mg-folic acid 800 mcg tablet () Allergies Allergy/AdvReac Type Severity Reaction Status Date / Time No Known Allergies Allergy Verified 09/18/21 11:09 Review of Systems Review of Systems: All systems reviewed & are unremarkable except as noted in HPI and below PMFSH Past Medical History Medical History Hypertension affecting UTI (urinary tract infection) Surgical History Surgical History Delivery by section (09/25/21) primary c/s Breech H/O wrist surgery History of laparoscopy 05/02/20 dx lscope to r/o torsion Family History Family History Other Unknown family medical history Social History Social History Smoking status: Smoker, status unknown Second hand tobacco smoke exposure: No Additional smoking assessment comments: pt admits to occasional marijuana use Alcohol intake: never Substance use: current Gender identity (if verbalized by the patient): Female Sexual Orientation (if Verbalized by the Patient): Straight or Heterosexual Spiritual care concerns: No Exam Narrative: APPEARANCE: Discomfort due to lower abdominal pain HEAD: normocephalic, atraumatic. EYES: PERRLA/EOMI, conjunctivae clear. NECK: Supple. No adenopathy, no masses. RESPIRATORY: Airway patent, respirations nonlabored. Clear to auscultation bilaterally, no rales, rhonchi, wheezing. CARDIOVASCULAR: Regular rate and rhythm without murmurs rubs or gallops. ABDOMINAL: Soft, nontender, nondistended, normal bowel sounds MUSCULOSKELETAL: Moves all extremities. Strength/ROM intact, No edema, No calf tenderness. NEURO: Alert. Cranial nerves II through XII intact. SKIN: Warm, dry. Normal Color Course Course Emergency Course: Patient initially presented to the ER and was transferred to OB from triage. OB confirmed that she was less than 20 weeks so she was transferred back to the emergency department for work-up. heart tones were 165 at that time. Patient was transferred back to the emergency department and an ultrasound was ordered to evaluate the fetus, seed technician stated that the patient was and that delivery was eminent. OB was recalled and patient was transported over to room 110. I help to escort the patient over to OB. Upon arrival to OB the OB nurses stated that the position was paged and that they are able to manage the patient from that point. I returned back to the emergency department Vital Signs Vital signs: Vital Signs Temperature 96.8 F L 11/25/22 11:22 Pulse Rate 100 11/25/22 11:22 Respiratory Rate 20 11/25/22 11:22 Blood Pressure 160/82 H 11/25/22 11:22 Pulse Oximetry 99 11/25/22 11:22 Oxygen Delivery Room Air 11/25/22 11:22 Temperature 96.8 F L 11/25/22 11:22 Pulse Rate 115 H 11/25/22 16:26 Respiratory Rate 22 H 11/25/22 12:15 Blood Pressure 121/67 11/25/22 16:26 Pulse Oximetry 100 11/25/22 12:15 Oxygen Delivery Room Air 11/25/22 11:22 Medical Decision Making Vital Signs Vital Signs: Vital Signs Temperature 96.8 F L 11/25/22 11:22 Pulse Rate 100 11/25/22 11:22 Respiratory Rate 20 11/25/22 11:22 Blood Pressure 160/82 H 11/25/22 11:22 Pulse Oximetry 99 11/25/22 11:22 Oxygen Deli
--- NOTE | 2022-11-25 12:19 | PC.NURSE ---
121: RN phoned Dr. Shipley to notify her that pt was sent back over from the ER after ultrasound and that the fetus was delivered but not the placenta. Orders to break the sac the fetus was still in. OB stated she is on her way into the hospital.
--- NOTE | 2022-11-25 12:41 | PC.NURSE ---
1200: US at bedside, this RN in room to assist. pt having a hard time lying still d/t contractions. US notified this RN that the patient is in active labor, Dr. Bill notified and another RN called OB to let them know of pending arrival to unit. Pt aware of progress. This RN and another RN along with Dr. Bill rolled patient to OB emergently. Upon arrival to OB at approximately 1215 Ob corrective and manual arts therapist at bedside to take over care.
--- NOTE | 2022-11-25 13:18 | PM.IMHP ---
H&P: HPI History of Present Illness Date/Time: 11/25/22 13:18 Chief Complaint: delivery Narrative: Patient presented to ED with complaints of cramping that started at 0830. On arrival the triage nurse took her to L and D. I was called at 1108 by L and D nurse who informed me that patient was 16 weeks and was sent over, by the triage nurse, to L and D. On L and D she had doptones of 160s, I was told she looked uncomfortable. I had L and D send her to ED for full evaluation. I talked to the ED physician to make him aware I was sending her over for full evaluation, no physician on L and D for the initial assessment. In ED an ultrasound was performed and on the ultrasound head was seen in vagina. Patient was then taken back to L and D and was roomed and delivered at 1202 in sac. Placenta had not delivered. I was called at 1211 by L and D nurse who notified me that the patient had delivered a male ,en caul and requested amniotic sac be opened to allow for her to hold baby. There was no heart tone auscultated after delivery. movement of rib cage was present. When I arrived the placenta had subsequently delivered, appeared intact. She denied LOF. She states she has had two appointments and had hyperemesis. No urinary symptoms. No abnormal vaginal discharge. She is a , no h/o PTL, prior delivery was 10/13 via section for breech. That there was a question of PPROM at 29 weeks which she was transferred to [facility] and negative for PPROM. She states history of associated hypertension. She states no medication or diagnosis of hypertension outside of . Review of Systems Review of Systems: All systems reviewed & are unremarkable except as noted in HPI and below Constitutional: Constitutional: Reports no additional constitutional complaints and Denies headache(s) Eyes: Eyes: Denies spots in vision ENT: Reports system reviewed and no additional complaints, except as documented and Denies headache(s) Cardiovascular: Cardiovascular: Denies chest pain and Denies dyspnea Respiratory: Respiratory: Denies dyspnea Gastrointestinal: Gastrointestinal: Reports no additional gastrointestinal complaints Genitourinary: Genitourinary: Reports amenorrhea Neurologic: Denies headache(s) [facility] Past Medical History Medical History Hypertension affecting UTI (urinary tract infection) Surgical History Surgical History Delivery by section (09/25/21) primary c/s Breech H/O wrist surgery History of laparoscopy 05/02/20 dx lscope to r/o torsion Family History Family History Other Unknown family medical history Social History Social History Smoking status: Smoker, status unknown Second hand tobacco smoke exposure: No Additional smoking assessment comments: pt admits to occasional marijuana use Alcohol intake: never Substance use: current Gender identity (if verbalized by the patient): Female Sexual Orientation (if Verbalized by the Patient): Straight or Heterosexual Spiritual care concerns: No Meds Home Medications and Allergies Home Medications Medication Instructions Recorded Confirmed Type vit no.95-ferrous 1 tablet PO DAILY 10/25/20 09/25/21 History fumarate 28 mg-folic acid 800 mcg tablet () hydrocodone 5 mg-acetaminophen 325 1 tablet PO Q6H PRN Moderate Pain 09/27/21 Rx mg tablet (4-6) #30 tabs ibuprofen 600 mg tablet 600 mg PO Q6H PRN Cramping #30 tabs 09/27/21 Rx ondansetron 4 mg disintegrating 4 mg PO Q6-8H PRN nausea and 09/22/22 Rx tablet vomiting #14 tabs Allergies Allergy/AdvReac Type Severity Reaction Status Date / Time No Known Allergies Allergy Verified 09/18
[2022-11-25] MEDS: miSOPROStol 200 MCG TABLET 800 MCG VAGINAL (14:00)
[2022-11-25 16:24] LABS: Glucose 98 mg/dL (65-110); Uric Acid 2.5 mg/dL (2.5-7.5)
[2022-11-25 16:39] LABS: Amphetamine Screen Urine Negative (Negative); Barbiturate Screen Urine Negative (Negative); Benzodiazepines Screen Urine Negative (Negative); Cannabinoid Screen Urine Positive (Negative); Cocaine Screen Urine Negative (Negative); Methadone Screen Urine Negative (Negative); Opiate Screen Urine Negative (Negative); Phencyclidine Screen Urine Negative (Negative)
[2022-11-25 16:54] LABS: Thyroid Stimulating Hormone 0.333 uIU/mL (0.465-4.680)
[2022-11-25 16:58] LABS: Hepatitis B Surface Antigen Negative (Negative); Rubella IgG Antibody 88.8 IU/ML
[2022-11-25 17:03] LABS: HIV 1/2 Ab P24 Ag Result Negative (Negative)
[2022-11-26 13:15] LABS: Rapid Plasma Reagin Non-Reactive (NonReactive)
[2022-11-29 14:06] LABS: CMV IgM Antibody <30.00 AU/mL (<30.00)
[2022-11-30 11:53] LABS: Lupus dRVVT Screen 42 sec (<=45); PTT-LA Screen 34 sec (<=40)
[2022-11-30 12:01] LABS: CMV IgG Antibody <0.60 U/mL (<0.60)
[2022-12-01 04:23] LABS: Anti Cardio Antibody IgM <2.0 MPL-U/mL (<20.0); Anti Cardiolipin Antibody IgA 3.6 APL-U/mL (<20.0); Anti Cardiolipin Antibody IgG <2.0 GPL-U/mL (<20.0)
--- NOTE | 2022-12-21 11:24 | PM.OBDSVD ---
DS: Admitting Diagnosis Discharge Date 11/25/22 Admitting Diagnosis Inevitable miscarriage DS: Discharge Diagnosis Discharge Diagnosis (1) Spontaneous miscarriage: Code(s): O03.9 - Complete or unspecified spontaneous without complication Status: Acute OB - DS: Summary Hospital Course Hospital Course: She was admitted to L and D from ED due to inevitable miscarriage. She shortly had a vaginal delivery of a severely . There was some movements present, no audible heart tones The movements eventually stopped. demise labs and culture obtained. Placenta delivered with fetus. Bleeding minimal. She requested discharge to home. Discharge precautions discussed. OB Procedures : None OB Procedures Intrapartum: Spontaneous Vag Delivery OB Procedures: : None Peripartum Data Infant Delivery Method: Natural Vaginal complications: none Time Spent with Patient Time attestation: Total time spent providing and/or coordinating discharge services: Exam Const: General: cooperative Orientation/consciousness: oriented to person, oriented to place and oriented to time HENMT: Face/Nose/Sinus: Normal external nose present Eyes: General: appearance normal, both eyes and all related structures Resp: Effort & Inspection: normal respiratory effort GI: Inspection: normal to inspection Skin: General skin exam: normal color Neuro: General: oriented to person, oriented to place and oriented to time Extrem: General: normal to inspection and no calf tenderness Psych: Appearance: grossly normal Mental Status: mental status grossly normal DS: Data Data Completed and Pending Completed studies during hospitalization: Pending at discharge 11/25/22 12:02 Surgical [PTH] Routine Pending studies at discharge: Pending at discharge 11/25/22 13:50 Cytology [PTH] Routine Discharge Plan Discharge Attending physician on discharge: Derick Shipley Consulting providers: Dread Bill; Matty Canales Discharging Clinician: Derick Shipley Patient Disposition: Home, Self-Care Activity: as tolerated and pelvic rest Diet: as tolerated and regular Discharge Instructions: Follow-Up: Call your Provider's office for an appointment to be seen in: 1 week EPISIOTOMY/PERINEAL CARE: * Until bleeding stops, use your jass bottle after urinating * Change your pad frequently throughout the day * You may take sitz baths several times a day (fill your bathtub with warm water and soak for 20 minutes.) Do NOT bathe in the water * No tub baths until seen by your physician - You may shower BLEEDING: * Each individual will experience vaginal bleeding, but it will vary with each situation and individual woman. * Vaginal bleeding will go thru cycles-from bright red, to pinkish to a white, creamy discharge. This is considered normal. You may also experience a brownish discharge which is also normal. DIET AND NUTRITION: * Eat at least 3 regular, well-balanced meals per day: include all 4 food groups daily. * You may prefer 6 small meals. * Drink 6-8 glasses of water or non-caffeinated beverages per day. * Loss of appetite is common with loss. We encourage you to try to eat; this will help with both your physical and emotional health. ACTIVITY: * Rest as much as possible during the day. * Do not exercise or lift anything heavier than 10 pounds (such as laundry or other children.) * Avoid stairs or driving as much as possible, especially if you are taking pain medication. * Do not put anything into the vagina. No douching, tampons, or sexual activity until seen and released by your physician. * Listen to your body, and do not do what is uncomfortable or painful. EMOTIONAL HEALTH: * This is a very difficult and sad time for you and your family, friends, and other children. It may be helpful to refer to the booklets on lo
== END 2022-11-25 20:40 | disposition home or self-care (01) | DRG 560 ==
LOC: ANHED 11:59 → ANHLDR 12:06
PROVIDERS: Admitting Provider Obstetrics & Gynecology; Emergency Provider Emergency Medicine; Visit Provider Obstetrics & Gynecology
DX: O60.12X0 Preterm labor second trimester with preterm delivery second trimester, not applicable or unspecified (principal); Z37.0 Single live birth; Z3A.16 16 weeks gestation of pregnancy
CPT/HCPCS: 36415; 76815; 80307; 81001; 82947; 84439; 84443; 84550; 84702; 85025; 85461; 85613; 85730; 86146; 86147; 86592; 86644; 86645; 86703; 86762; 86850; 86900; 86901; 87070; 87075; 87077; 87110; 87140; 87205; 87340; 88305; 88309; 99285; A9270; G0432